=== PATIENT | male | born 1980 | race Caucasian/White ===

== ENCOUNTER 2021-01-17 01:30 | Emergency (ER) | payer SELFPAY ==
[2021-01-17 01:35] VITALS: BP 147/99; PULSE 93; RESP 20; TEMP 37; O2SAT 98
--- NOTE | 2021-01-17 01:49 | ED.GENADULT ---
HPI - General Adult General Chief complaint: Allergic Reaction Stated complaint: swelling to face and mouth Time Seen by Provider: 01/17/21 01:33 History of Present Illness HPI narrative: Patient 40-year-old gentleman who presents the emergency department with chief complaint of allergic reaction. Patient reports that tonight he ate some venison and then went to sleep and woke up with itching over his body and noticed that his tongue started swelling. The patient denies shortness of breath but does state that he has to open his mouth to take deep breaths. Patient states that he had no new medications reports that he is not on any medications on a regular basis the patient states he is not really sure what could have triggered this episode today. Patient states that he had hives that initially showed up when he started having symptoms he took 50 mg of p.o. Benadryl at home prior to arrival. Review of Systems Review of Systems: Narrative: A 10 system review of systems was completed on the patient and is negative except for what is stated in the HPI. Nursing and ancillary documentation was reviewed. PMFSH Comments Patient denies significant past medical history Social history patient denies illicit drug use Exam Narrative: Exam Narrative: GENERAL: Well-appearing, well-nourished, and in no acute distress. HEAD: Normocephalic, atraumatic. EYES: PERRLA and EOMI. ENT: Nares clear, no rhinorrhea or epistaxis. Mucous membranes moist. NECK: Supple. CHEST: Clear to auscultation. No respiratory distress. HEART: Regular rate and rhythm. No murmur heard. Normal peripheral pulses. ABDOMEN: Soft, nontender, nondistended, normal active bowel sounds. EXTREMITIES: Normal range of motion. No edema. SKIN: Warm, dry, there is urticaria present. NEURO: No focal deficits. Alert and oriented x3. PSYCH: Normal mood and affect. Course Vital Signs Vital signs: Vital Signs Temperature 37.0 C 01/17/21 01:35 Pulse Rate 93 01/17/21 01:35 Respiratory Rate 20 01/17/21 01:35 Blood Pressure 147/99 H 01/17/21 01:35 Pulse Oximetry 98 01/17/21 01:35 Temperature 37.0 C 01/17/21 01:35 Pulse Rate 93 01/17/21 01:35 Respiratory Rate 20 01/17/21 01:35 Blood Pressure 147/99 H 01/17/21 01:35 Pulse Oximetry 98 01/17/21 01:35 Medical Decision Making Vital Signs Vital Signs: Vital Signs Temperature 37.0 C 01/17/21 01:35 Pulse Rate 93 01/17/21 01:35 Respiratory Rate 20 01/17/21 01:35 Blood Pressure 147/99 H 01/17/21 01:35 Pulse Oximetry 98 01/17/21 01:35 Temperature 37.0 C 01/17/21 01:35 Pulse Rate 93 01/17/21 01:35 Respiratory Rate 20 01/17/21 01:35 Blood Pressure 147/99 H 01/17/21 01:35 Pulse Oximetry 98 01/17/21 01:35 Discharge Plan Discharge Clinical Impression: Urticaria Allergic reaction Qualifiers: Encounter type: initial encounter Qualified Code(s): T78.40XA - Allergy, unspecified, initial encounter Patient Disposition: Home, Self-Care Condition: Stable Instructions: Antibiotic Form, Urticaria (ED), General Allergic Reaction (ED) Prescriptions: New methylprednisolone [Medrol (Shawn)] 4 mg tablets,dose pack See Rx Instructions PO .COMPLEX Qty: 21 RF: 0 Follow-up/Referrals: Pamela Piña MD [Physician] - PHYSICIAN,FILM SPOOLER [Primary Care Provider] - Time of Disposition: 03:30
[2021-01-17] MEDS: methylPREDNISolone SOD SUCC 125 MG VIAL IV PUSH (01:53)
[2021-01-17] MEDS: FAMOTIDINE 20 MG/2 ML VIAL IV PUSH (01:53)
[2021-01-17] MEDS: diphenhydrAMINE HCl INJ 50 MG/ML VIAL IV PUSH (01:53)
[2021-01-17 03:41] VITALS: BP 139/89; PULSE 79; RESP 18; O2SAT 99
== END 2021-01-17 03:44 | disposition home or self-care (01) ==
PROVIDERS: Emergency Provider Emergency Medicine
DX: L50.9 Urticaria, unspecified (principal); T78.40XA Allergy, unspecified, initial encounter
CPT/HCPCS: 96374; 96375; 99284; J1200; J2930

== ENCOUNTER 2024-04-22 20:27 | Emergency (ER) | payer SELFPAY ==
[2024-04-22 20:29] VITALS: BP 157/101; PULSE 107; RESP 16; TEMP 36.6; O2SAT 95
[2024-04-22 20:34] VITALS: BP 157/115; PULSE 105; RESP 20; O2SAT 97
[2024-04-22] MEDS: SODIUM CHLORIDE 0.9% IV 1,000 ML 999 ML IV CONT (20:45)
[2024-04-22] MEDS: FAMOTIDINE 20 MG/2 ML VIAL IV PUSH (20:46)
[2024-04-22] MEDS: methylPREDNISolone SOD SUCC 125 MG VIAL IV PUSH (20:46)
[2024-04-22] MEDS: diphenhydrAMINE HCl INJ 50 MG/ML VIAL IV PUSH (20:46)
[2024-04-22 21:37] VITALS: BP 163/96; PULSE 68; RESP 20; O2SAT 96
--- NOTE | 2024-04-22 21:58 | ED.GENADULT ---
HPI - General Adult General Chief complaint: Allergic Reaction Stated complaint: hives Time Seen by Provider: 04/22/24 20:37 History of Present Illness HPI narrative: Patient is a 43-year-old gentleman who presents emergency department with chief complaint of urticaria. The patient reports this evening started developing hives over his body reports that it itches reports no swelling in his tongue Related Data Allergies Allergy/AdvReac Type Severity Reaction Status Date / Time No Known Allergies Allergy Verified 04/22/24 20:58 Review of Systems Review of Systems: A 10 system review of systems was completed on the patient and is negative except for what is stated in the HPI. Nursing and ancillary documentation was reviewed. Exam Narrative: GENERAL: Well-appearing, well-nourished, and in no acute distress. HEAD: Normocephalic, atraumatic. EYES: PERRLA and EOMI. ENT: Nares clear, no rhinorrhea or epistaxis. Mucous membranes moist. NECK: Supple. CHEST: Clear to auscultation. No respiratory distress. HEART: Regular rate and rhythm. No murmur heard. Normal peripheral pulses. ABDOMEN: Soft, nontender, nondistended, normal active bowel sounds. EXTREMITIES: Normal range of motion. No edema. SKIN: Warm, dry, urticaria rash. NEURO: No focal deficits. Alert and oriented x3. PSYCH: Normal mood and affect. Course Vital Signs Vital signs: Vital Signs Temperature 36.6 C 04/22/24 20:29 Pulse Rate 107 H 04/22/24 20:29 Respiratory Rate 16 04/22/24 20:29 Blood Pressure 157/101 H 04/22/24 20:29 Pulse Oximetry 95 04/22/24 20:29 Oxygen Delivery Room Air 04/22/24 20:29 Temperature 36.6 C 04/22/24 20:29 Pulse Rate 67 04/22/24 22:01 Respiratory Rate 20 04/22/24 22:01 Blood Pressure 159/88 H 04/22/24 22:01 Pulse Oximetry 95 04/22/24 22:01 Oxygen Delivery Room Air 04/22/24 20:[address] [facility] Narrative Medical decision making narrative: Patient showing signs of allergic reaction. This time the patient did not require epinephrine. The patient will was given IV steroids IV Benadryl and IV Pepcid. The patient will be discharged home on a steroid pulse Vital Signs Vital Signs: Vital Signs Temperature 36.6 C 04/22/24 20:29 Pulse Rate 107 H 04/22/24 20:29 Respiratory Rate 16 04/22/24 20:29 Blood Pressure 157/101 H 04/22/24 20:29 Pulse Oximetry 95 04/22/24 20:29 Oxygen Delivery Room Air 04/22/24 20:29 Temperature 36.6 C 04/22/24 20:29 Pulse Rate 67 04/22/24 22:01 Respiratory Rate 20 04/22/24 22:01 Blood Pressure 159/88 H 04/22/24 22:01 Pulse Oximetry 95 04/22/24 22:01 Oxygen Delivery Room Air 04/22/24 20:34 Discharge Plan Discharge Clinical Impression: Urticaria Patient Disposition: Home, Self-Care Condition: Stable Instructions: Antibiotic Form, Urticaria (ED) Prescriptions: New methylprednisolone [Medrol (Shawn)] 4 mg tablets,dose pack See Rx Instructions PO .COMPLEX Qty: 21 0RF Rx Instructions: orally per package directions No Action methylprednisolone [Medrol (Shawn)] 4 mg tablets,dose pack See Rx Instructions PO .COMPLEX Qty: 21 0RF Rx Instructions: orally per package directions Follow-up/Referrals: PHYSICIAN,CLAM TREADER [Primary Care Provider] - Chester Cyr MD [Physician] - Time of Disposition: 22:45
[2024-04-22 22:01] VITALS: BP 159/88; PULSE 67; RESP 20; O2SAT 95
== END 2024-04-22 23:12 | disposition home or self-care (01) ==
PROVIDERS: Emergency Provider Emergency Medicine
DX: L50.9 Urticaria, unspecified (principal)
CPT/HCPCS: 96361; 96374; 96375; 99284; J1200; J2919; J7030